=== PATIENT | female | born 1935 | race Caucasian/White ===

== ENCOUNTER 2016-10-07 08:25 | Inpatient (IN) | payer MEDICARE, BC ==
[~2016-10-07 08:25] MED LIST: ADULT LOW DOSE81 M1 PO; ALLERGY RELIEF25 M1 PO; AMILORIDE HCL5 M1 PO; AMILORIDE HCL5 MG PO; B-6 PO; BENADRYL25 M3 PO; BETAPACE80 MG PO; BYSTOLIC10 M1 PO; BYSTOLIC5 MG PO; CHOLEST OFF450 M1 PO; CINNAMON500 M1 PO; CINNAMON500 MG PO; ELIQUIS PO; FLAGYL250 MG PO; FOLIC ACID0.4 M1 PO; HM FOLIC ACID0.4 MG PO; MAG6464 MG PO; NORVASC10 MG PO; OMEGA 3 1,0001 EAC1 PO; OMEGA-31000 M1 PO; OMEPRAZOLE40 M2 PO; OMEPRAZOLE40 MG PO; PEPTO-BISM262 MG/15 PO; PROTONIX40 MG PO; SLOW-MAG64 MG PO; SOTALOL80 M1 PO; TYLENOL500 MG PO; VIBRAMYCIN100 MG PO; VITAMIN B-150 M1 PO; VITAMIN D1000 UNI1 PO; VITAMIN D1000 UNI3 PO; ZINC30 M1 PO; ZINC50 M2 PO; [UNRECOGNIZED DRUG - OTHER] PO
[2016-10-07 09:08] LABS: ABG CO2 ARTERIAL 23 mmol/L (21-27); ARTERIAL BLD GAS O2 SATURATION 84 % (95-98); ARTERIAL BLOOD GAS PCO2 30 mmHg (32-45); ARTERIAL PO2 51 mmHg (70-100); BICARBONATE 22 mmol/L (21-28); BLOOD GAS BASE EXCESS -1 mM/L (-/+3); PH 7.48 Units (7.35-7.45)
[2016-10-07] MEDS ORDERED: NORVASC10 M2 PO (09:12)
[2016-10-07 09:13] LABS: BASO % 0.1 % (0-2); HCT-HEMATOCRIT 27.5 % (34.0-49.0); HGB-HEMOGLOBIN 9.6 gm/dl (12.0-15.5); IMMATURE GRANULOCYTES ABSOLUTE 1.23 tho/cmm (0-0.03); IMMATURE GRANULOCYTES PERCENT 3.6 % (0-0.3); LYMPH ABSOLUTE COUNT 1.4 tho/cmm (0.8-4.5); MCH (MEAN CORPUSCULAR HGB) 31.2 pg (28.0-32.0); MCHC MEAN CORPUSCULAR HGB CONC 34.9 % (32.0-36.0); MCV (MEAN CELL VOLUME) 89.3 fl (82.0-96.0); MEAN PLATELET VOLUME 8.8 cmc (9.4-12.4); MONO % 4.9 % (0-12); MONOCYTE ABSOLUTE COUNT 1.7 tho/cmm (0.0-1.2); NEUTROPHIL ABSOLUTE COUNT 29.5 tho/cmm (1.6-8.0); NEUTROPHIL-AUTOMATED 29.5 tho/cmm (1.6-8.0); NEUTROPHILS % 87.4 % (40-80); PLATELET COUNT 355 tho/cmm (150-450); RED BLOOD COUNT 3.08 mil/cmm (4.00-5.20); RED CELL DISTRIBUTION WIDTH 13.7 % (12.4-16.4); WHITE BLOOD COUNT 33.7 tho/cmm (4.0-10.0)
[2016-10-07 09:16] LABS: URINE BILIRUBIN NEGATIVE (NEG); URINE BLOOD MODERATE (NEG); URINE GLUCOSE (UA) NEGATIVE (NEG); URINE KETONE NEGATIVE (NEG); URINE LEUKOCYTE ESTERASE NEGATIVE (NEG); URINE NITRITE NEGATIVE (NEG); URINE PROTEIN MODERATE (NEG); URINE SPECIFIC GRAVITY 1.015 (1.003-1.030)
[2016-10-07 09:17] LABS: URINE APPEARANCE CLEAR; URINE COLOR YELLOW
[2016-10-07 09:24] LABS: URINE AMORPHOUS 2+; URINE EPITHELIAL CELLS 0-3 /[HPF] (0-10); URINE WBC 0-3 /[HPF] (0-5)
[2016-10-07 09:30] LABS: ALB/GLOB RATIO 0.3 (0.8-2.0); ALKALINE PHOSPHATASE 131 U/L (33-138); ALT/SGPT 25 U/L (12-78); ANION GAP 15 mmol/L (0-20); AST/SGOT 28 U/L (10-40); BILIRUBIN,TOTAL 0.5 mg/dl (0-1.5); BLOOD UREA NITROGEN 19 mg/dl (6-24); CALCIUM 9.2 mg/dl (8.5-10.5); CARBON DIOXIDE-VENOUS 22 mmol/L (22-32); CHLORIDE 90 mmol/l (96-110); CREATININE 0.71 mg/dl (0.50-1.10); GLUCOSE 97 mg/dL (70-110); SODIUM 123 mmol/L (135-145); eGFR VALUE FOR BLACK >90 mL/Min
[2016-10-07 09:38] LABS: MAGNESIUM 0.7 mg/dl (1.8-2.6)
[2016-10-07 09:41] LABS: WBC MORPHOLOGY VACUOLES
[2016-10-07] MEDS ORDERED: MAGNESIUM IV (09:56)
[2016-10-07 10:08] LABS: PROCALCITONIN 1.97 ng/ml (0.05-0.09)
[2016-10-07] MEDS ORDERED: ALLERGY MED PO (10:11)
[2016-10-07 13:39] LABS: INR 1.3 INR (0.9-1.1); PROTHROMBIN TIME 14.8 SECONDS (9.0-13.6)
[2016-10-07 17:35] LABS: BODY FLUID TYPE RIGHT PLEARAL
[2016-10-07 17:38] LABS: BODY FLUID APPEARANCE CLOUDY (CLEAR); BODY FLUID COLOR GREEN (COLORLESS); BODY FLUID MACROPHAGES 7 %; BODY FLUID NEUTROPHILS 93 %; BODY FLUID VOLUME 400 ml
[2016-10-07 17:40] LABS: BODY FLUID RBC COUNT 891000 cmm (0)
[2016-10-07 17:41] LABS: BODY FLUID TYPE RIGHT PLEURAL
[2016-10-07 17:52] LABS: BODY FLUID WBC COUNT >50000 cmm
[2016-10-07 18:06] LABS: URINE TOTAL PROTEIN-RANDOM 36.7 mg/dl (<11.8)
[2016-10-08 03:34] LABS: HCT-HEMATOCRIT 26.2 % (34.0-49.0); HGB-HEMOGLOBIN 9.1 gm/dl (12.0-15.5); MCH (MEAN CORPUSCULAR HGB) 31.2 pg (28.0-32.0); MCHC MEAN CORPUSCULAR HGB CONC 34.7 % (32.0-36.0); MCV (MEAN CELL VOLUME) 89.7 fl (82.0-96.0); NEUTROPHIL-AUTOMATED 18.3 tho/cmm (1.6-8.0); PLATELET COUNT 365 tho/cmm (150-450); RED BLOOD COUNT 2.92 mil/cmm (4.00-5.20); RED CELL DISTRIBUTION WIDTH 13.8 % (12.4-16.4)
[2016-10-08 04:12] LABS: INR 1.2 INR (0.9-1.1); PROTHROMBIN TIME 13.6 SECONDS (9.0-13.6)
[2016-10-08 04:18] LABS: PROCALCITONIN 1.19 ng/ml (0.05-0.09)
[2016-10-08 04:25] LABS: ANION GAP 15 mmol/L (0-20); BLOOD UREA NITROGEN 12 mg/dl (6-24); CALCIUM 8.3 mg/dl (8.5-10.5); CARBON DIOXIDE-VENOUS 20 mmol/L (22-32); CHLORIDE 98 mmol/l (96-110); CREATININE 0.52 mg/dl (0.50-1.10); GLUCOSE 76 mg/dL (70-110); MAGNESIUM 1.1 mg/dl (1.8-2.6); PHOSPHOROUS 2.1 mg/dl (2.5-4.9); POTASSIUM 3.3 mmol/L (3.7-5.1); SODIUM 130 mmol/L (135-145); eGFR VALUE FOR BLACK >90 mL/Min
[2016-10-08 06:42] LABS: BAND % 27 % (0-20); BAND ABSOLUTE COUNT 5.9 tho/cmm (0-2.0); EOSINOPHIL % 1 % (0-7)
[2016-10-09 04:24] LABS: HCT-HEMATOCRIT 25.9 % (34.0-49.0); HGB-HEMOGLOBIN 8.9 gm/dl (12.0-15.5); MCH (MEAN CORPUSCULAR HGB) 31.1 pg (28.0-32.0); MCHC MEAN CORPUSCULAR HGB CONC 34.4 % (32.0-36.0); MCV (MEAN CELL VOLUME) 90.6 fl (82.0-96.0); MEAN PLATELET VOLUME 8.9 cmc (9.4-12.4); NEUTROPHIL-AUTOMATED 10.1 tho/cmm (1.6-8.0); PLATELET COUNT 348 tho/cmm (150-450); RED BLOOD COUNT 2.86 mil/cmm (4.00-5.20); RED CELL DISTRIBUTION WIDTH 14.1 % (12.4-16.4); WHITE BLOOD COUNT 13.1 tho/cmm (4.0-10.0)
[2016-10-09 04:37] LABS: ANION GAP 12 mmol/L (0-20); BLOOD UREA NITROGEN 8 mg/dl (6-24); CALCIUM 7.8 mg/dl (8.5-10.5); CARBON DIOXIDE-VENOUS 25 mmol/L (22-32); CHLORIDE 97 mmol/l (96-110); CREATININE 0.57 mg/dl (0.50-1.10); GLUCOSE 86 mg/dL (70-110); PHOSPHOROUS 2.6 mg/dl (2.5-4.9); POTASSIUM 3.1 mmol/L (3.7-5.1); SODIUM 131 mmol/L (135-145); eGFR VALUE FOR BLACK >90 mL/Min
[2016-10-09 05:15] LABS: PROCALCITONIN 0.69 ng/ml (0.05-0.09)
[2016-10-09 07:42] LABS: BAND % 12 % (0-20); BAND ABSOLUTE COUNT 1.6 tho/cmm (0-2.0); EOSINOPHIL % 2 % (0-7)
[2016-10-10 05:10] LABS: HCT-HEMATOCRIT 26.9 % (34.0-49.0); MCH (MEAN CORPUSCULAR HGB) 30.5 pg (28.0-32.0); MCHC MEAN CORPUSCULAR HGB CONC 33.5 % (32.0-36.0); MCV (MEAN CELL VOLUME) 91.2 fl (82.0-96.0); MEAN PLATELET VOLUME 8.8 cmc (9.4-12.4); PLATELET COUNT 336 tho/cmm (150-450); RED BLOOD COUNT 2.95 mil/cmm (4.00-5.20); RED CELL DISTRIBUTION WIDTH 14.3 % (12.4-16.4); WHITE BLOOD COUNT 12.4 tho/cmm (4.0-10.0)
[2016-10-10 05:14] LABS: BASO % 0.2 % (0-2); EOSINOPHIL ABSOLUTE COUNT 0.1 tho/cmm (0.0-0.7); IMMATURE GRANULOCYTES ABSOLUTE 0.67 tho/cmm (0-0.03); IMMATURE GRANULOCYTES PERCENT 5.4 % (0-0.3); LYMPH ABSOLUTE COUNT 1.5 tho/cmm (0.8-4.5)
[2016-10-10 05:18] LABS: ANION GAP 12 mmol/L (0-20); BLOOD UREA NITROGEN 6 mg/dl (6-24); CARBON DIOXIDE-VENOUS 28 mmol/L (22-32); CHLORIDE 95 mmol/l (96-110); GLUCOSE 86 mg/dL (70-110); MAGNESIUM 0.9 mg/dl (1.8-2.6); SODIUM 132 mmol/L (135-145); eGFR VALUE FOR BLACK >90 mL/Min
[2016-10-10 05:33] LABS: POTASSIUM 2.9 mmol/L (3.7-5.1)
[2016-10-10 06:19] LABS: EOS % 0.4 % (0-7); LYMPH % 11.4 % (20-45); MONO % 10.5 % (0-12); MONOCYTE ABSOLUTE COUNT 1.4 tho/cmm (0.0-1.2); NEUTROPHILS % 72.1 % (40-80)
[2016-10-11 06:12] LABS: ANION GAP 12 mmol/L (0-20); BLOOD UREA NITROGEN 7 mg/dl (6-24); CALCIUM 8.1 mg/dl (8.5-10.5); CARBON DIOXIDE-VENOUS 29 mmol/L (22-32); CHLORIDE 92 mmol/l (96-110); CREATININE 0.48 mg/dl (0.50-1.10); GLUCOSE 89 mg/dL (70-110); POTASSIUM 3.1 mmol/L (3.7-5.1); SODIUM 130 mmol/L (135-145); eGFR VALUE FOR BLACK >90 mL/Min
[2016-10-12 05:18] LABS: BASO % 0.3 % (0-2); EOS % 0.6 % (0-7); EOSINOPHIL ABSOLUTE COUNT 0.1 tho/cmm (0.0-0.7); HCT-HEMATOCRIT 28.7 % (34.0-49.0); HGB-HEMOGLOBIN 9.6 gm/dl (12.0-15.5); IMMATURE GRANULOCYTES ABSOLUTE 0.55 tho/cmm (0-0.03); IMMATURE GRANULOCYTES PERCENT 4.8 % (0-0.3); LYMPH % 15.5 % (20-45); LYMPH ABSOLUTE COUNT 1.8 tho/cmm (0.8-4.5); MCH (MEAN CORPUSCULAR HGB) 30.6 pg (28.0-32.0); MCHC MEAN CORPUSCULAR HGB CONC 33.4 % (32.0-36.0); MCV (MEAN CELL VOLUME) 91.4 fl (82.0-96.0); NEUTROPHIL ABSOLUTE COUNT 8.1 tho/cmm (1.6-8.0); NEUTROPHIL-AUTOMATED 8.1 tho/cmm (1.6-8.0); NEUTROPHILS % 69.8 % (40-80); PLATELET COUNT 334 tho/cmm (150-450); RED BLOOD COUNT 3.14 mil/cmm (4.00-5.20); RED CELL DISTRIBUTION WIDTH 14.3 % (12.4-16.4); WHITE BLOOD COUNT 11.6 tho/cmm (4.0-10.0)
[2016-10-12 05:28] LABS: ANION GAP 13 mmol/L (0-20); BLOOD UREA NITROGEN 9 mg/dl (6-24); CARBON DIOXIDE-VENOUS 28 mmol/L (22-32); CHLORIDE 91 mmol/l (96-110); GLUCOSE 89 mg/dL (70-110); MAGNESIUM 1.2 mg/dl (1.8-2.6); POTASSIUM 3.4 mmol/L (3.7-5.1); SODIUM 129 mmol/L (135-145); eGFR VALUE FOR BLACK >90 mL/Min
[2016-10-12 19:19] LABS: MAGNESIUM 1.9 mg/dl (1.8-2.6); POTASSIUM 4.3 mmol/L (3.7-5.1)
[2016-10-13 06:24] LABS: ANION GAP 13 mmol/L (0-20); BLOOD UREA NITROGEN 12 mg/dl (6-24); CALCIUM 8.3 mg/dl (8.5-10.5); CARBON DIOXIDE-VENOUS 27 mmol/L (22-32); CHLORIDE 94 mmol/l (96-110); CREATININE 0.61 mg/dl (0.50-1.10); GLUCOSE 74 mg/dL (70-110); POTASSIUM 3.9 mmol/L (3.7-5.1); SODIUM 130 mmol/L (135-145); eGFR VALUE FOR BLACK >90 mL/Min
[2016-10-14 05:35] LABS: BASO % 0.1 % (0-2); HCT-HEMATOCRIT 28.7 % (34.0-49.0); HGB-HEMOGLOBIN 9.7 gm/dl (12.0-15.5); IMMATURE GRANULOCYTES ABSOLUTE 0.36 tho/cmm (0-0.03); IMMATURE GRANULOCYTES PERCENT 4.5 % (0-0.3); LYMPH % 24.2 % (20-45); LYMPH ABSOLUTE COUNT 1.9 tho/cmm (0.8-4.5); MCH (MEAN CORPUSCULAR HGB) 30.5 pg (28.0-32.0); MCHC MEAN CORPUSCULAR HGB CONC 33.8 % (32.0-36.0); MCV (MEAN CELL VOLUME) 90.3 fl (82.0-96.0); MEAN PLATELET VOLUME 8.9 cmc (9.4-12.4); MONO % 10.8 % (0-12); MONOCYTE ABSOLUTE COUNT 0.9 tho/cmm (0.0-1.2); NEUTROPHIL ABSOLUTE COUNT 4.8 tho/cmm (1.6-8.0); NEUTROPHIL-AUTOMATED 4.8 tho/cmm (1.6-8.0); NEUTROPHILS % 60.4 % (40-80); PLATELET COUNT 301 tho/cmm (150-450); RED BLOOD COUNT 3.18 mil/cmm (4.00-5.20); RED CELL DISTRIBUTION WIDTH 14.2 % (12.4-16.4); WHITE BLOOD COUNT 7.9 tho/cmm (4.0-10.0)
[2016-10-14 06:19] LABS: PROCALCITONIN 0.14 ng/ml (0.05-0.09)
[2016-10-14] MEDS ORDERED: CEFTRIAXONE2 GM IV (15:52)
[2016-10-14] MEDS ORDERED: IPRAT-ALBUT 0.5-3 ML AERO NEB (15:54)
[2016-10-14] MEDS ORDERED: CULTURELLE1 EAC1 PO (15:55)
[2016-10-14] MEDS ORDERED: MIRALAX17 G2 PO (15:56)
[2016-10-14] MEDS ORDERED: MILK OF MAGNESIA PO (15:56)
== END 2016-10-14 15:35 | DRG 871 ==
LOC: EDMED 08:25 → EMR2 14:17 → PCUA 14:19
PROVIDERS: Emergency Medicine; Internal Medicine; Internal Medicine Critical Care Medicine; Nurse Practitioner; Radiology Diagnostic Radiology; ADMIT Family Medicine
PROC: 0W993ZZ Drainage of Right Pleural Cavity, Percutaneous Approach (ICD-10-PCS; principal; 2016-10-07)
DX: A41.9 Sepsis, unspecified organism (principal); J96.01 Acute respiratory failure with hypoxia; J90 Pleural effusion, not elsewhere classified; R65.20 Severe sepsis without septic shock
CPT/HCPCS: C1769; C8929; G8999-GN-CJ; G9186-GN-CI; J0456; J0696; J1650; J3010; J3475; J3480; J7030; J7050; P9612; Q9967